=== PATIENT | female | born 1995 | race Caucasian/White ===

== ENCOUNTER → 2017-11-23 | Outpatient (CLI) | payer OTHER ==
[~2017-11-23] MED LIST: CYCL10TA29 PO; IBUP800T37 PO; [UNRECOGNIZED DRUG - REMARK]
[2017-11-23 09:41] LABS: PLATELET COUNT, AUTOMATED 257 K/uL (150-450)
== END ==
LOC: LAB 09:23
PROVIDERS: ATTEND Nurse Practitioner Primary Care
DX: R07.9 Chest pain, unspecified (principal)
CPT/HCPCS: 36415; 82040; 82247; 82310; 82374; 82435; 82565; 82947; 84075; 84132; 84155; 84295; 84443; 84450; 84460; 84520; 85025; 85379

== ENCOUNTER → 2018-02-24 | Outpatient (CLI) | payer OTHER | LOC: LAB 09:23 | PROVIDERS: ATTEND Surgery | DX: L91.8 Other hypertrophic disorders of the skin (principal) | CPT/HCPCS: 88305 ==